=== PATIENT | male | born 1955 | race African-American/Black ===

== ENCOUNTER 2020-03-06 13:20 | Emergency (ER) | payer MEDICARE, OTHER ==
[~2020-03-06] VITALS: Ht 177.8 cm; Wt 76.4 kg
[2020-03-06 13:49] VITALS: BP 115/72
== END 2020-03-06 16:00 | disposition home or self-care (01) ==
LOC: EDBD 13:23 → EMS 13:23
DX: L30.9 Dermatitis, unspecified (principal); B36.9 Superficial mycosis, unspecified

== ENCOUNTER 2020-05-10 14:30 | Emergency (ER) | payer MEDICARE, OTHER ==
[~2020-05-10] VITALS: Ht 177.8 cm; Wt 76.4 kg
[2020-05-10 14:31] VITALS: BP 113/66
[2020-05-10 15:30] LABS: APPEARANCE,URINE CLOUDY (CLEAR); BILIRUBIN,URINE NEGATIVE (NEGATIVE); GLUCOSE, URINE (UA) NEGATIVE (NEGATIVE); KETONES,URINE NEGATIVE (NEGATIVE); LEUKOCYTE ESTERASE ,URINE MODERATE (NEGATIVE); NITRATE,URINE NEGATIVE (NEGATIVE); OCCULT BLOOD,URINE NEGATIVE (NEGATIVE); PH,URINE 7.5 (5.0-8.0); PROTEIN,URINE NEGATIVE (NEGATIVE)
[2020-05-10] MEDS ORDERED: ACETAMINOPHEN 500 MG TABLET PO ONE (15:30)
[2020-05-10 15:39] LABS: RBC,URINE None Seen /HPF (0-2)
[2020-05-10 15:40] LABS: BACTERIA,URINE Few /HPF (None Seen); SQUAMOUS EPITHELIAL CELL,UR Moderate /LPF (None Seen)
[2020-05-10] MEDS ORDERED: CEPHALEXIN MONOHYDRATE 500 MG CAPSULE PO ONE (15:45)
== END 2020-05-10 15:54 | disposition home or self-care (01) ==
LOC: EMS 14:36
DX: N39.0 Urinary tract infection, site not specified (principal)
CPT/HCPCS: 87086

== ENCOUNTER 2020-08-19 11:56 | Emergency (ER) | payer MEDICARE, OTHER ==
[~2020-08-19] VITALS: Ht 177.8 cm; Wt 81.8 kg
[2020-08-19] MEDS ORDERED: LIDOCAINE 5% TRANSDERMAL PATCH TD ONE (12:45)
[2020-08-19 14:08] VITALS: BP 130/80
== END 2020-08-19 14:37 | disposition home or self-care (01) ==
LOC: EMS 12:19
DX: M54.2 Cervicalgia (principal)
CPT/HCPCS: 72125; Z7502; Z7610